=== PATIENT | female | born 1990 | race Caucasian/White ===

== ENCOUNTER 2017-10-21 23:20 | Emergency (ER) | payer OTHER ==
[2017-10-21 23:46] VITALS: RESP 18; TEMP 97.7
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
[2017-10-22] MEDS ORDERED: HYDROCOD/APAP 5/325 PREPACK#6 BTL TAKEHOME ONE (01:03)
[2017-10-22 01:23] VITALS: BP 124/66; PULSE 61; O2SAT 96
== END 2017-10-22 01:23 | disposition home or self-care (01) ==
DX: S82.302A Unspecified fracture of lower end of left tibia, initial encounter for closed fracture (principal); F17.200 Nicotine dependence, unspecified, uncomplicated; W00.0XXA Fall on same level due to ice and snow, initial encounter; Y92.009 Unspecified place in unspecified non-institutional (private) residence as the place of occurrence of the external cause; Y93.55 Activity, bike riding

== ENCOUNTER 2017-10-24 12:34 | Day surgery (SDC) | payer OTHER ==
[2017-10-24] MEDS ORDERED: ceFAZolin 2 GM/SWFI 2 GM/20 ML SYR IVP ONE (12:51)
[2017-10-24] MEDS ORDERED: LR 1,000 ML IV ONE (12:51)
[2017-10-24] MEDS ORDERED: LIDOCAINE 1% 2 ML INJ ID PRN (12:51)
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
[2017-10-24] MEDS ORDERED: MIDAZOLAM 2 MG/2 ML VIAL IVP ONE (13:56)
[2017-10-24] MEDS ORDERED: BUPIVACAINE 0.5% 30 ML SDV ONE (14:11)
--- NOTE | 2017-10-24 14:21 | PDHPUP ---
History & Physical Update H&P update statement: This history and physical update is based on an assessment of the patient which was completed after admission or registration (within 24 hours), but prior to the surgery/procedure.
[2017-10-24 14:34] VITALS: PULSE 76
[2017-10-24] MEDS ORDERED: fentaNYL 100 MCG/2 ML INJ ONE ×5 (14:42→18:40)
[2017-10-24] MEDS ORDERED: PROPOFOL 200 MG/20 ML VIAL ONE ×2 (14:42→14:58)
[2017-10-24] MEDS ORDERED: ROPIVACAINE 0.2% 550 MG in WATER FOR INJECTION,STERILE 275 ML, PUMP SET 1 EA NB SCH (15:00)
[2017-10-24] MEDS ORDERED: DEXAMETHASONE 4 MG/ML VIAL ONE (15:04)
[2017-10-24] MEDS ORDERED: ROPIVACAINE HCL 150 MG/30 ML INJ ONE (15:08)
[2017-10-24] MEDS ORDERED: LIDOCAINE 2% 5 ML SDV ONE (15:08)
[2017-10-24] MEDS ORDERED: ONDANSETRON 4 MG/2 ML VIAL ONE (15:08)
[2017-10-24] MEDS ORDERED: ROCURONIUM 50 MG/5 ML VIAL ONE (15:15)
[2017-10-24] MEDS ORDERED: OXYCODONE/APAP 5/325 TAB PO PRN (17:16)
[2017-10-24] MEDS ORDERED: ONDANSETRON 4 MG/2 ML VIAL IVP PRN (17:16)
[2017-10-24] MEDS ORDERED: HYDROmorphONE/DILAUDID 1 MG/ML INJ IVP PRN (17:16)
[2017-10-24] MEDS ORDERED: LR 500 ML IV PRN (17:16)
[2017-10-24] MEDS ORDERED: PROMETHAZINE HCL 25 MG/ML INJ IVP PRN (17:16)
[2017-10-24] MEDS ORDERED: NALOXONE HCL 0.4 MG/ML INJ IVP PRN (17:16)
[2017-10-24] MEDS ORDERED: PHENYLEPHRINE HCL 100 MCG/ML SYR IVP PRN (17:16)
--- NOTE | 2017-10-24 17:54 | POSTOPPROG ---
Post Op Note Date of Operation: 10/24/17 Surgeon: Masood Ludwig Platform Stapler: Nemo Anesthesia: GET(General Endotracheal) Pre-op Diagnosis: L pilon fx Post-op Diagnosis: same Indication: orif L pilon and fibula fx Procedure: orif L pilon and fibula fx Inf/Abcess present in the surg proc area at time of surgery?: No EBL: 50-100
[2017-10-24] MEDS: fentaNYL 100 MCG/2 ML INJ IVP PRN ×4 (17:58→19:33)
--- NOTE | 2017-10-24 19:13 | POSTANESTH ---
Post Anesthetic Evaluation Cardiovascular Status: Normal, Stable, Similar to Pre-Op Cond Respiratory Status: Normal, Stable, Similar to Pre-op Cond. Level of Consciousness/Mental Status: Can Participate in Eval, Alert and Oriented Pain Control: Inadeq, Add Tx Required Nausea/Vomiting Control: Adequate, Prn Tx Ordered Complications Possibly Related to Anesthesia: None Noted (Very difficult peripheral nerve block placement. Patient very intolerant of placement of ultrasound probe on posterior thigh for performing popliteal block. Scan of the leg and obtain good image of scitatic nerve bifurcation, patient would lift leg off probe and visualization was lost. After several attempts, to get good visualization, became apparent patient was not going to remain still for even the ultrasound probe. Became increased risk greater than pain control benefit. Dr. Allan aborted procedure.)
[2017-10-24] MEDS ORDERED: OXYCODONE/APAP 5/325 TAB ONE (19:19)
[2017-10-24 20:09] VITALS: RESP 16
--- NOTE | 2017-10-24 21:08 | POSTANESTH ---
Post Anesthetic Evaluation Cardiovascular Status: Normal, Stable Respiratory Status: Normal, Stable Level of Consciousness/Mental Status: Can Participate in Eval Pain Control: Adequate, Prn Tx Ordered (Patient continued to experience significant post-op pain despite oral doses of oxycodone and IV fentanyl. Additional anesthesiologist called into hospital (Dr. Jenkins) for second opinion. Dr. Jenkins able to successfully place popliteal nerve catheter. On- Que pump hooked up. Patient, Patient's Aunt and Patient's significant other educated regarding the use of On-Que pump. Patient with 0/10 pain at time of discharge. Anesthesiologist pager number provided to patient for any questions regarding nerve block, nerve block catheter and pain control in general.) Nausea/Vomiting Control: Adequate, Prn Tx Ordered Complications Possibly Related to Anesthesia: None Noted
[2017-10-24 21:12] VITALS: BP 121/66; TEMP 99.5; O2SAT 92
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
--- NOTE | 2017-10-25 16:02 | POSTANESTH ---
Post Anesthetic Evaluation Cardiovascular Status: Normal, Stable, Similar to Pre-Op Cond Respiratory Status: Normal, Stable, Similar to Pre-op Cond. Level of Consciousness/Mental Status: Can Participate in Eval, Alert and Oriented Nausea/Vomiting Control: Adequate, Prn Tx Ordered Complications Possibly Related to Anesthesia: None Noted (Patient discharged home on 10-25-2017 with indwelling popliteal nerve catheter. Spoke to patient this morning. Did well overnight, but pain increased this morning. Patient increased pump rate from 4ml/hr to 14ml/hr but had increasing "pressure" pain in her foot and found 12ml/hr a better setting. Patient states she is taking her oral pain medication as prescribed by Dr. Ludwig.)
--- NOTE | 2017-10-26 13:50 | POSTANESTH ---
Post Anesthetic Evaluation Cardiovascular Status: Normal, Stable, Similar to Pre-Op Cond Respiratory Status: Normal, Stable, Similar to Pre-op Cond. Level of Consciousness/Mental Status: Can Participate in Eval, Alert and Oriented Pain Control: Inadeq, Add Tx Required Nausea/Vomiting Control: Adequate, Prn Tx Ordered Complications Possibly Related to Anesthesia: Other, See Comments (Patient paged anesthesiology on evening of 10-25-2017, stated nerve block catheter did not seem to be providing much relief. Discussion with patient's caregiver ( boyfriend). Following turning down the On-Q elastomertic pump to 2ml/hr, patient did not have an increase in pain. Suggestive that the catheter tip was no longer in close enough proximity of nerve to provide good analgesia. Patient and caregiver followed instructions and removed the catheter.)
== END 2017-10-24 21:15 | disposition home or self-care (01) ==
LOC: FSGY 12:34
PROVIDERS: ATTEND Orthopaedic Surgery
PROC: 0QSK04Z Reposition Left Fibula with Internal Fixation Device, Open Approach (ICD-10-PCS; principal; 2017-10-24 13:45)
PROC: 0QSH04Z Reposition Left Tibia with Internal Fixation Device, Open Approach (ICD-10-PCS; principal; 2017-10-24 13:45)
DX: S82.872A Displaced pilon fracture of left tibia, initial encounter for closed fracture (principal); S82.832A Other fracture of upper and lower end of left fibula, initial encounter for closed fracture; Y93.55 Activity, bike riding; X50.0XXA Overexertion from strenuous movement or load, initial encounter; F17.200 Nicotine dependence, unspecified, uncomplicated
CPT/HCPCS: 27828; 76001; C1769; C1713; J0690; J1100; J2250; J2405; J2704; J2795; J3010

== ENCOUNTER 2019-02-08 18:38 | Emergency (ER) | payer OTHER ==
--- NOTE | 2019-02-08 18:51 | EDPHY ---
HPI/HX/ROS/PE/MDM Narrative: CHIEF COMPLAINT: Left foot injury HPI: This patient is a pleasant 29 year old female. She presents today after stubbing her toe sharply on a piece of metal tracking under the couch in her living room. She elevated and iced her foot for several hours, but pain persists. She has noted swelling and ecchymosis to the middle toe on her left foot. She notes it seems to be slightly bent towards the outside of her foot, which is not its usual alignment. She denies any other trauma and has no further complaints. REVIEW OF SYSTEMS: A comprehensive 10 system review of systems is otherwise negative aside from elements mentioned in the history of present illness and medical decision making. PMH: Left ankle surgery. 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 Lives in [place]. Does not abuse tobacco, drugs, or alcohol. PHYSICAL EXAM: General: Patient is alert, in no acute distress. Left foot: Ecchymosis and swelling to base of middle toe of left foot. Healed surgical scar over left ankle. Neuro: Oriented x3. Normal motor function. Normal sensory function. ED Course: 29 y/o female presents with ecchymosis and swelling to base of the middle toe of her left foot after stubbing it this afternoon. Plan for x-ray of the left toes to r/o fracture. Reviewed x-ray. This is negative for acute fracture. Reassessed patient. Discussed imaging results. Plan to discharge home in good condition. Follow up and return precautions discussed. She is comfortable with this plan. - Data Points Imaging Results: Imaging Impressions Toe X-Ray 02/08/19 19:00 Impression: No definite fracture of the left 3rd toe. General Time Seen by Provider: 02/08/19 18:40 Initial Vital Signs: Initial Vital Signs Temperature (C) 36.8 C 02/08/19 18:40 Heart Rate 70 02/08/19 18:40 Respiratory Rate 16 02/08/19 18:40 Blood Pressure 120/76 02/08/19 18:40 O2 Sat (%) 97 02/08/19 18:40 O2 Delivery Mode Room Air Allergies/Adverse Reactions: No Known Allergies Allergy (Verified 10/23/17 17:39) Home Medications: Medication Instructions Recorded Control 10/21/17 Departure - Departure Disposition: Home, Routine, Self-Care Clinical Impression: Injury of left toe Qualifiers: Encounter type: initial encounter Qualified Code(s): S99.922A - Unspecified injury of left foot, initial encounter Condition: Good Instructions: Sprain (ED) Additional Instructions: Rest, ice, elevation. Follow up with an client relation specialist or hot blaster for persistent symptoms or further concerns. Wear comfortable shoes as we discussed. Return to the emergency department for worsening pain, swelling, numbness, weakness or other concerns. Referrals: ADRIAN SHEPHERD [Primary Care Provider] - As per Instructions Constantino Bruce DPM [Doctor of Podiatric Medicine] - As per Instructions Yuval Carbone MD [Medical Doctor] - As per Instructions Stand Alone Forms: Work Limited Duty, Work Excuse Report Scribed for: Alex Stewart Report Scribed by: Dagmar Nina Date of Report: 02/08/19 Time of Report: 18:51 Physician Review and Approval Statement: Portions of this note were transcribed by an ED scribe. I personally performed the history, physical exam, and medical decision making; and confirm the accuracy of the information in the transcribed note.
[2019-02-08] MEDS ORDERED: IBUPROFEN 600 MG TAB PO ONE (19:20)
[2019-02-08 19:28] VITALS: BP 133/85
== END 2019-02-08 19:33 | disposition home or self-care (01) ==
DX: M79.89 Other specified soft tissue disorders (principal); W22.03XA Walked into furniture, initial encounter; Y92.001 Dining room of unspecified non-institutional (private) residence as the place of occurrence of the external cause